=== PATIENT | male | born 1955 | race Caucasian/White ===

== ENCOUNTER 2017-08-16 02:32 | Inpatient (IN) | payer OTHER ==
[2017-08-16] MEDS ORDERED: morphine 2 MG INJ IV ×2 (03:30→04:00)
[2017-08-16] MEDS ORDERED: MECLIZINE 25 MG TAB PO (04:00)
[2017-08-16] MEDS ORDERED: ONDANSETRON 4 MG INJ IV (04:00)
[2017-08-16] MEDS ORDERED: NACL 0.9% 3 ML SYG IV (04:00)
[2017-08-16] MEDS ORDERED: NITROGLYCERIN (SL) 0.4 MG TAB SL (04:00)
[2017-08-16] MEDS ORDERED: ACETAMINOPHEN 325 MG TAB PO (04:00)
[2017-08-16] MEDS ORDERED: ALBUTEROL/IPRATROPIUM (NEB) 3 ML AMP HHN (04:00)
[2017-08-16] MEDS ORDERED: ZOLPIDEM 5 MG TAB PO (04:00)
[2017-08-16] MEDS: DEXTROSE 5%-0.45% NACL 1,000 ML IV ×2 (04:47→14:00)
[2017-08-16 05:09] LABS: ADD MAN DIFF? NO
[2017-08-16 05:21] LABS: ABNORMAL IP MESSAGE 1; BASOPHIL # 0.1 10^3/ul (0.0-0.1); BASOPHILS % 0.8 % (0.0-2.0); EOSINOPHILS # 0.2 10^3/ul (0.0-0.5); EOSINOPHILS % 1.9 % (0.0-7.0); HEMATOCRIT 34.7 % (42.0-52.0); HEMOGLOBIN 12.1 g/dl (14.0-18.0); LYMPHOCYTES # 5.4 10^3/ul (0.8-2.9); LYMPHOCYTES % 47.6 % (15.0-51.0); MEAN CORPUSCULAR HEMOGLOBIN 31.1 pg (29.0-33.0); MEAN CORPUSCULAR HGB CONC 34.9 g/dl (32.0-37.0); MEAN CORPUSCULAR VOLUME 89.2 fl (82.0-101.0); MEAN PLATELET VOLUME 10.5 fl (7.4-10.4); MONOCYTE # 0.8 10^3/ul (0.3-0.9); MONOCYTES % 7.4 % (0.0-11.0); NEUTROPHIL # 4.8 10^3/ul (1.6-7.5); PLATELET COUNT 230 10^3/UL (140-415); POSITIVE DIFF @See below; RED BLOOD COUNT 3.89 10^6/ul (4.70-6.10); RED CELL DISTRIBUTION WIDTH 12.9 % (11.5-14.5)
[2017-08-16 05:21] LABS: WHITE BLOOD COUNT 11.3 10^3/ul (4.8-10.8)
[2017-08-16 05:46] LABS: ALANINE AMINOTRANSFERASE 29 IU/L (13-69); ALBUMIN 4.2 g/dl (3.3-4.9); ALKALINE PHOSPHATASE 63 IU/L (42-121); ANION GAP 17 (8-16); ASPARTATE AMINO TRANSFERASE 21 IU/L (15-46); BILIRUBIN,INDIRECT 0.5 mg/dl (0-1.1); BILIRUBIN,TOTAL 0.5 mg/dl (0.2-1.3); BLOOD UREA NITROGEN 19 mg/dl (7-20); CALCIUM 9.3 mg/dl (8.4-10.2); CARBON DIOXIDE 27 mmol/L (21-31); CHLORIDE 105 mmol/L (97-110); CHOL/HDL RATIO 4.6 RATIO; CHOLESTEROL 241 mg/dl (100-200); GLUCOSE 198 mg/dl (70-220); HDL CHOLESTEROL 52 mg/dl (30-78); LDL CHOLESTEROL,CALCULATED 153 mg/dl; PHOSPHORUS 3.5 mg/dl (2.5-4.9); POTASSIUM 4.8 mmol/L (3.5-5.1); SODIUM 144 mmol/L (135-144); TOTAL PROTEIN 7.2 g/dl (6.1-8.1); TRIGLYCERIDES 180 mg/dl (0-149)
[2017-08-16 06:08] LABS: CREATINE KINASE 71 IU/L (23-200)
[2017-08-16 06:21] LABS: CK INDEX 4.9
[2017-08-16 06:28] LABS: CK-MB 3.51 ng/ml (0.0-2.4)
[2017-08-16 07:15] LABS: HEMOGLOBIN A1C 9.1 % (0-5.9)
[2017-08-16 07:42] LABS: ANISOCYTOSIS 2+ (0-0); BAND NEUTROPHILS #M 0.1 10^3/ul (0.0-0.6); BAND NEUTROPHILS % (M) 1 % (0-4); EOSINOPHILS % (M) 1 % (0-7); LYMPHOCYTES #M 5.8 10^3/ul (0.8-2.9); LYMPHOCYTES % (M) 52 % (15-51); MICROCYTOSIS 1+ (0-0); MONOCYTE #M 0.3 10^3/ul (0.3-0.9); MONOCYTES % (M) 3 % (0-11); PLATELET ESTIMATE NORMAL; POLYCHROMASIA 1+ (0-0); REACTIVE LYMPHOCYTES #M 0.2 10^3/ul (0.0-0.0); REACTIVE LYMPHOCYTES% (M) 2 % (0-0); SEG NEUT #M 4.6 10^3/ul (1.6-7.5); SEGMENTED NEUTROPHILS (M) % 41 % (39-77); SMUDGE%M 1 % (0-0)
[2017-08-16] MEDS: LISINOPRIL 20 MG TAB PO (08:44)
[2017-08-16] MEDS: ASPIRIN 81 MG TAB PO (08:44)
[2017-08-16] MEDS: HEPARIN 5,000 UNIT/0.5 ML VIAL SC (08:47)
[2017-08-16] MEDS: METOPROLOL (XL) 25 MG TAB PO (08:48)
[2017-08-16] MEDS ORDERED: HEPARIN 1000 UNITS/ML 10 ML INJ IV (09:00)
[2017-08-16] MEDS: NICOTINE (21 MG/24 HR) PATCH TRANSDERM (10:01)
[2017-08-16] MEDS: INSULIN ASPART [NOVOLOG] 3 ML PEN SC ×4 (10:07→20:48)
[2017-08-16] MEDS ORDERED: HEPARIN 1000 UNITS/ML 10 ML INJ (12:51)
[2017-08-16] MEDS ORDERED: IODIXANOL LOCM 100 ML BTL ×2 (12:51→14:14)
[2017-08-16] MEDS ORDERED: LIDOCAINE 1% (MDV) 20 ML INJ (12:51)
[2017-08-16] MEDS ORDERED: MIDAZOLAM 1 MG/ML 2 ML INJ (12:52)
[2017-08-16] MEDS ORDERED: FENTAnyl 50 MCG/ML VIAL (12:52)
[2017-08-16] MEDS ORDERED: VERAPAMIL 5 MG INJ (12:52)
[2017-08-16] MEDS ORDERED: NITROGLYCERIN (IC) 100 MCG/ML INJ (12:52)
[2017-08-16 13:02] LABS: CREATINE KINASE 67 IU/L (23-200)
[2017-08-16 13:13] LABS: CK INDEX 3.2
[2017-08-16 13:15] LABS: CK-MB 2.16 ng/ml (0.0-2.4)
[2017-08-16] MEDS ORDERED: TICAGRELOR 90 MG TABLET (13:56)
[2017-08-16] MEDS: SOD CHLORIDE 0.9% 1,000 ML IV (14:07)
[2017-08-16] MEDS ORDERED: IODIXANOL LOCM 50 ML BTL (14:14)
[2017-08-16] MEDS: ATORVASTATIN 40 MG TAB PO (20:35)
[2017-08-16] MEDS: INSULIN GLARGINE [LANtus] 3 ML PEN SC (20:49)
[2017-08-16] MEDS: TICAGRELOR 90 MG TABLET PO (20:51)
[2017-08-17] MEDS: INSULIN ASPART [NOVOLOG] 3 ML PEN SC ×4 (01:00→13:19)
[2017-08-17] MEDS: ACCU-CHEK XX (01:48)
[2017-08-17] MEDS: DEXTROSE 5%-0.45% NACL 1,000 ML IV ×2 (02:30→09:32)
[2017-08-17 05:36] LABS: ADD MAN DIFF? NO
[2017-08-17 05:42] LABS: WHITE BLOOD COUNT 9.2 10^3/ul (4.8-10.8)
[2017-08-17 05:42] LABS: ABNORMAL IP MESSAGE 1; BASOPHILS % 0.4 % (0.0-2.0); EOSINOPHILS # 0.7 10^3/ul (0.0-0.5); EOSINOPHILS % 7.5 % (0.0-7.0); HEMATOCRIT 33.9 % (42.0-52.0); HEMOGLOBIN 11.7 g/dl (14.0-18.0); LYMPHOCYTES # 3.3 10^3/ul (0.8-2.9); LYMPHOCYTES % 35.9 % (15.0-51.0); MEAN CORPUSCULAR HGB CONC 34.5 g/dl (32.0-37.0); MEAN CORPUSCULAR VOLUME 89.7 fl (82.0-101.0); MONOCYTE # 0.5 10^3/ul (0.3-0.9); MONOCYTES % 5.4 % (0.0-11.0); NEUTROPHIL # 4.7 10^3/ul (1.6-7.5); NEUTROPHILS % 50.6 % (39.0-77.0); PLATELET COUNT 217 10^3/UL (140-415); POSITIVE DIFF @See below; RED BLOOD COUNT 3.78 10^6/ul (4.70-6.10); RED CELL DISTRIBUTION WIDTH 12.9 % (11.5-14.5)
[2017-08-17 05:53] LABS: ANION GAP 15 (8-16); BLOOD UREA NITROGEN 15 mg/dl (7-20); CALCIUM 9.7 mg/dl (8.4-10.2); CARBON DIOXIDE 31 mmol/L (21-31); CHLORIDE 106 mmol/L (97-110); CREATININE 0.89 mg/dl (0.61-1.24); GLUCOSE 122 mg/dl (70-220); PHOSPHORUS 4.2 mg/dl (2.5-4.9); POTASSIUM 4.9 mmol/L (3.5-5.1); SODIUM 147 mmol/L (135-144)
[2017-08-17] MEDS: TICAGRELOR 90 MG TABLET PO (09:20)
[2017-08-17] MEDS: METOPROLOL (XL) 25 MG TAB PO (09:21)
[2017-08-17] MEDS: ASPIRIN 81 MG TAB PO (09:21)
[2017-08-17] MEDS: LISINOPRIL 20 MG TAB PO (09:21)
[2017-08-17] MEDS: NICOTINE (21 MG/24 HR) PATCH TRANSDERM (09:31)
[2017-08-17] MEDS ORDERED: CHLORTHALIDONE 25 MG TAB PO (14:30)
== END 2017-08-17 14:40 | disposition home or self-care (01) | DRG 247 ==
LOC: MS4 02:32 → ICU 14:19
PROC: 027034Z Dilation of Coronary Artery, One Artery with Drug-eluting Intraluminal Device, Percutaneous Approach (ICD-10-PCS; principal; 2017-08-16 12:38)
PROC: 4A023N7 Measurement of Cardiac Sampling and Pressure, Left Heart, Percutaneous Approach (ICD-10-PCS; 2017-08-16 12:38)
PROC: B2111ZZ Fluoroscopy of Multiple Coronary Arteries using Low Osmolar Contrast (ICD-10-PCS; 2017-08-16 12:38)
PROC: B2151ZZ Fluoroscopy of Left Heart using Low Osmolar Contrast (ICD-10-PCS; 2017-08-16 12:38)
DX: I21.4 Non-ST elevation (NSTEMI) myocardial infarction (principal); E11.65 Type 2 diabetes mellitus with hyperglycemia; I10 Essential (primary) hypertension; I25.10 Atherosclerotic heart disease of native coronary artery without angina pectoris; F17.200 Nicotine dependence, unspecified, uncomplicated
CPT/HCPCS: 71045; 80048; 80053; 80061; 82550; 82553; 82962; 83036; 83735; 84100; 84443; 84484; 85025; 87081; 93005; 93306; 93458

== ENCOUNTER 2018-01-11 10:22 | Day surgery (SDC) | payer OTHER ==
[~2018-01-11 10:22] MED LIST: ACETAMINOPHEN 1000 MG/100 ML IVPB; CEFAZOLIN 1 GM INJ; DEXAMETHASONE 4 MG/ML 1 ML INJ; ONDANSETRON 4 MG INJ
[2018-01-11] MEDS: INSULIN REGULAR, HUMAN 100 UNIT/1 ML 3ML VIAL SC (11:37)
[2018-01-11] MEDS ORDERED: FENTAnyl 50 MCG/ML VIAL (12:24)
[2018-01-11] MEDS ORDERED: LIDOCAINE 2% (SDV) 5 ML INJ (12:24)
[2018-01-11] MEDS ORDERED: MIDAZOLAM 1 MG/ML 2 ML INJ (12:24)
[2018-01-11] MEDS ORDERED: PROPOFOL 20 ML (12:24)
[2018-01-11] MEDS ORDERED: METOCLOPRAMIDE 10 MG INJ (12:26)
[2018-01-11] MEDS ORDERED: METOCLOPRAMIDE 10 MG INJ IV (14:30)
[2018-01-11] MEDS ORDERED: IPRATROPIUM (NEB) 0.5 MG/2.5 ML AMP HHN (14:30)
[2018-01-11] MEDS ORDERED: ONDANSETRON 4 MG INJ IV (14:30)
[2018-01-11] MEDS ORDERED: HYDROCODONE/APAP (5/325) TAB PO (14:30)
[2018-01-11] MEDS ORDERED: FENTAnyl 50 MCG/ML VIAL IV ×2 (14:30)
[2018-01-11] MEDS ORDERED: LABETALOL HCL 20MG INJ IV (14:30)
[2018-01-11] MEDS ORDERED: DIPHENHYDRAMINE 50 MG INJ IV (14:30)
[2018-01-11] MEDS ORDERED: HYDROmorphONE 1 MG/5 ML IV SYRINGE IV ×2 (14:30)
[2018-01-11] MEDS ORDERED: MEPERIDINE 25 MG INJ IV (14:30)
[2018-01-11] MEDS: hydrALAzine 20 MG INJ IV (16:17)
== END 2018-01-16 12:48 | disposition home or self-care (01) ==
LOC: SDS 01-16 12:48
DX: D49.4 Neoplasm of unspecified behavior of bladder (principal); E78.5 Hyperlipidemia, unspecified; E11.9 Type 2 diabetes mellitus without complications; I25.10 Atherosclerotic heart disease of native coronary artery without angina pectoris; Z98.61 Coronary angioplasty status; I11.9 Hypertensive heart disease without heart failure
CPT/HCPCS: 52234; 82962; 88305

== ENCOUNTER 2018-05-24 10:19 | Day surgery (SDC) | payer OTHER ==
[~2018-05-24 10:19] MED LIST changes: -ACETAMINOPHEN 1000 MG/100 ML IVPB; +CEFAZOLIN 2 GM/50 ML (PMX) 50 ML IVPB; -DEXAMETHASONE 4 MG/ML 1 ML INJ; +LIDOCAINE 2% (SDV) 5 ML INJ; -ONDANSETRON 4 MG INJ; +PROPOFOL 200 MG INJ; +SEVOFLURANE 15 MIN
[2018-05-24] MEDS ORDERED: FENTAnyl 50 MCG/ML VIAL (12:06)
[2018-05-24] MEDS ORDERED: ONDANSETRON 4 MG INJ (12:08)
[2018-05-24] MEDS ORDERED: MIDAZOLAM 1 MG/ML 2 ML INJ (12:08)
[2018-05-24] MEDS ORDERED: DIPHENHYDRAMINE 50 MG INJ IV (12:30)
[2018-05-24] MEDS ORDERED: LABETALOL HCL 20MG INJ IV (12:30)
[2018-05-24] MEDS ORDERED: IPRATROPIUM (NEB) 0.5 MG/2.5 ML AMP HHN (12:30)
[2018-05-24] MEDS ORDERED: LEVALBUTEROL (NEB) 1.25 MG/0.5 ML AMP HHN (12:30)
[2018-05-24] MEDS ORDERED: hydrALAzine 20 MG INJ IV (12:30)
[2018-05-24] MEDS ORDERED: FENTAnyl 50 MCG/ML VIAL IV ×2 (12:30)
[2018-05-24] MEDS: MEPERIDINE 25 MG INJ IV (13:54)
[2018-05-24] MEDS: ONDANSETRON 4 MG INJ IV (13:56)
[2018-05-24] MEDS: HYDROmorphONE 1 MG/5 ML IV SYRINGE IV ×2 (13:59→14:05)
[2018-05-24] MEDS ORDERED: HYDROCODONE/APAP (5/325) TAB PO (14:00)
== END 2018-05-24 14:57 | disposition home or self-care (01) ==
LOC: SDS 10:19
DX: N30.20 Other chronic cystitis without hematuria (principal)
CPT/HCPCS: 52204; 82962; 88305

== ENCOUNTER 2019-02-11 06:10 | Day surgery (SDC) | payer OTHER ==
[~2019-02-11 06:10] MED LIST changes: -CEFAZOLIN 1 GM INJ; -LIDOCAINE 2% (SDV) 5 ML INJ; -PROPOFOL 200 MG INJ; -SEVOFLURANE 15 MIN
[2019-02-11] MEDS ORDERED: METHYLENE BLUE 50 MG/10 ML AMPUL (06:56)
[2019-02-11] MEDS ORDERED: IOHEXOL 300MG/ML 30 ML BTL (06:56)
[2019-02-11] MEDS ORDERED: HYDROmorphONE 1 MG/5 ML IV SYRINGE IV (07:30)
[2019-02-11] MEDS ORDERED: OXYCODONE/ACETAMINOPHEN (5/325) TAB PO (07:30)
[2019-02-11] MEDS ORDERED: LABETALOL HCL 20MG INJ IV (07:30)
[2019-02-11] MEDS ORDERED: ROCURONIUM 50 MG INJ (07:34)
[2019-02-11] MEDS ORDERED: ETOMIDATE 20 MG INJ (07:34)
[2019-02-11] MEDS ORDERED: LIDOCAINE 1% (MDV) 20 ML INJ (07:34)
[2019-02-11] MEDS ORDERED: LABETALOL HCL 20MG INJ (07:45)
[2019-02-11] MEDS ORDERED: CEFAZOLIN 1 GM INJ (07:47)
[2019-02-11] MEDS ORDERED: ONDANSETRON 4 MG INJ (07:47)
[2019-02-11] MEDS ORDERED: SUGAMMADEX SODIUM 200 MG/2 ML VIAL IV (08:19)
[2019-02-11] MEDS ORDERED: HYDROCODONE/APAP (5/325) TAB PO (08:30)
[2019-02-11 09:03] LABS: POTASSIUM 4.8 mmol/L (3.5-5.1)
[2019-02-11] MEDS: HYDROmorphONE 1 MG/5 ML IV SYRINGE IV (09:05)
[2019-02-11] MEDS: hydrALAzine 20 MG INJ IV (09:05)
[2019-02-11] MEDS: ONDANSETRON 4 MG INJ IV (09:05)
== END 2019-02-11 09:59 | disposition home or self-care (01) ==
LOC: SDS 06:10
DX: C67.5 Malignant neoplasm of bladder neck (principal); E11.9 Type 2 diabetes mellitus without complications; I10 Essential (primary) hypertension; I25.10 Atherosclerotic heart disease of native coronary artery without angina pectoris; Z79.82 Long term (current) use of aspirin; Z79.84 Long term (current) use of oral hypoglycemic drugs
CPT/HCPCS: 52204; 82962; 84132; 88305